=== PATIENT | female | born 1955 | race Caucasian/White ===

== ENCOUNTER 2022-05-30 12:01 | Outpatient (CLI) | payer MEDICARE ==
[2022-05-30] MEDS ORDERED: Iopamidol 300 61% 100 ML VIAL FS ONE (14:47)
== END 2022-05-30 12:02 | disposition home or self-care (01) ==
LOC: CSHCT 12:01
PROVIDERS: ATTEND Physician Assistant Medical
DX: R19.7 Diarrhea, unspecified (principal); R63.4 Abnormal weight loss; N28.1 Cyst of kidney, acquired; R19.8 Other specified symptoms and signs involving the digestive system and abdomen
CPT/HCPCS: 74177; 82565; Q9967